=== PATIENT | male | born 1960 | race Caucasian/White ===

== ENCOUNTER 2016-10-24 09:22 | Emergency (ER) | payer BC ==
[2016-10-24 09:53] VITALS: BP 141/77
[2016-10-24] MEDS ORDERED: MECLIZINE HCL 25 MG TABLET PO ONE (10:18)
--- NOTE | 2016-10-24 10:28 | ERNOTE ---
Dizziness ER Record Date of Service: 10/24/16 Presenting Symptoms: dizziness Time Seen by Provider: 10/24/16 10:01 Source: patient, family, RN notes reviewed Exam Limitations: no limitations Immunizations: IMMUNIZATION HX Immunizations Up to Date Yes History of Influenza Vaccine Yes Hx Pneumococcal Vaccination No Allergies/Adverse Reactions: Allergies Allergy/AdvReac Type Severity Reaction Status Date / Time No Known Allergies Allergy Verified 11/16/15 19:04 Home Medications: HOME MEDICATIONS Allopurinol 300 mg PO DAILY 09/02/13 [Last Taken 09/01/13 08:00] Enalapril Maleate [Vasotec] 20 mg PO DAILY 09/02/13 [Last Taken 09/01/13 08:00] Garlic 1,000 mg PO DAILY 09/02/13 [Last Taken Unknown] [place]-3 Fatty Acids/Fish Oil [Fish Oil 1,000 mg Capsule] 2 each PO DAILY [Last Taken Unknown] Omeprazole [Prilosec] 20 mg PO DAILY 09/02/13 [Last Taken 09/01/13 08:00] Simvastatin [Zocor] 40 mg PO HS 09/02/13 [Last Taken 09/01/13 20:00] Ezetimibe [Zetia] 10 mg PO DAILY 04/29/14 [Last Taken Unknown] metFORMIN HCL [Glucophage] 1,000 mg PO BIDWM #120 tablet 10/16/14 [Last Taken Unknown] L.acidoph & Paracasei,B.lactis [Probiotic] 1 each PO DAILY 11/13/15 [Last Taken Unknown] Multivitamins [Multivitamin Sadie] 1 cap PO DAILY 11/13/15 [Last Taken Unknown] Tadalafil [Cialis] 20 mg PO DAILY 11/13/15 [Last Taken Unknown] Acetaminophen [Tylenol] 650 mg PO QID PRN #0 tablet 11/18/15 [Last Taken Unknown ] Ammonium Lactate [Lac-Hydrin] 1 appl TP BID #1 btl 11/18/15 [Last Taken Unknown] Chromium Picolinate 2,000 mcg PO DAILY #1 tablet 11/18/15 [Last Taken Unknown] Cinnamon Bark [Cinnamon] 1,000 mg PO DAILY #1 capsule 11/18/15 [Last Taken Unknown] Silver Sulfadiazine [Silvadene] 1 appl TP BID #1 jar 11/18/15 [Last Taken Unknown] Fluticasone Propionate [Flonase] 2 spray NS DAILY #1 inhaler 10/24/16 [Last Taken Unknown] Meclizine HCl [Antivert] 25 mg PO TID PRN #20 tab 10/24/16 [Last Taken Unknown] - History of Present Illness Narrative: 56 y/o male to ED with by private vehicle for dizziness that began 3 days ago. He has also been having associated nausea, and did vomit once this morning. He is taking [place] for a knee injury, but started this the day after the dizziness began. Date (Duration): 10/14/16 Timing and Duration: sudden onset, intermittent Noted on awakening:: No Associated Symptoms: Present: ringing/roaring in ear, nausea, vomiting, light headedness. Absent: hearing loss, ear pain, headache, weakness, numbness, sweating, sense of confusion Sense of movement: Present: spinning Decreased ability to stand/walk:: Present: walks w/o assistance Usually:: Present: walks w/o assistance Modifying Factors - (Improves): Reports: other - remaining still Modifying Factors - (Worsens): Reports: movement of head Prior Treament: Denies: similar symptoms before Review of Systems - Review of Systems Constitutional: Absent: recent illness, fever, chills EYE: Absent: blurred vision, vision changes ENT: Present: nose congestion. Absent: ear pain, ear discharge, nasal drainage , sore throat Respiratory: Absent: shortness of breath, cough Cardiology: Absent: chest pain, palpitations, syncope Gastrointestinal/Abdominal: Present: See HPI Genitourinary: Present: no symptoms reported Musculoskeletal: Present: joint pain - knee. Absent: neck pain Skin: Absent: rash, lesions Neurological: Present: dizziness/light-headedness. Absent: headache, weakness, numbness, tingling Endocrine: Absent: other - elevated blood sugars Hematologic/Lymphatic: Present: no symptoms reported Psych: Absent: anxiety, depressed - Patient's Past Medical History Patient History - Medical: Diabetes Type 2, GERD, Obesity Patient History - Cardiac/Respiratory: Hypertension, Hyperlipidemia Patient History - Cancer: No Hx of Cancer Patient History - Surgical Procedures: Cholecystectomy, Other Patient History - Other: None - Family History Mother Family History - Medical: Father Family History - Medical: - Social History Living Situations: spouse Abuse History: No History of abuse Psych History: No pertinent hx Smoking Status: Former smoker Have you smoked in the past 12 months: Yes Do you dip or chew tobacco: No Alcohol Use: rarely Drug Use: none - Immunizations Immunizations Up to Date: Yes Hx Pneumococcal Vaccination: No History of Influenza Vaccine: Yes Physical Exam - Physical Exam General Appearance: Present: wd/wn, alert, no apparent distress Eye Exam: Normal inspection: bilateral, PERRL: bilateral, EOMI: right, Abnormal EOM: left - slight nystagmus with gaze to far left Ears, Nose, Throat: Present: hearing grossly normal, abnormal TM (L) - injection present, no middle ear fluid, nasal congestion - left side, normal pharynx. Absent: abnormal TM (R), sinus pain/drainage Neck: Present: normal inspection, nontender, supple, full range of motion Respiratory: Present: no respiratory distress, normal breath sounds, no accessory muscle use, lungs clear Cardiovascular/Chest: Present: regular rate, rhythm, no murmur, normal peripheral pulses Neurological Exam: Present: alert, oriented, normal mood/affect, no motor/ sensory deficits Skin Exam: Present: normal color, warm/dry ED Progress - Vital Signs Patient's Vital Signs:: I have reviewed the patient's vital signs. Vital Signs: Vital Signs 10/24/16 09:46 Temperature 36.6 C Pulse Rate 69 Respiratory 14 Rate Blood Pressure 141/77 O2 Sat by Pulse 96 Oximetry - Progress/Reassessment Chief Complaint: Dizziness Progress:: Unchanged Departure Clinical Impression: Dizziness Eustachian tube dysfunction Qualifiers: Laterality: left Qualified Code(s): H69.82 - Other specified disorders of Eustachian tube, left ear - Departure Disposition: Home Follow Up Needed Condition: Stable Instructions: Dizziness, [id number] Additional Instructions: Continue your routine medications Take Meclizine as needed and Flonase once a day Follow up if no improvement by mid-week Referrals: Nagi Feng MD [Primary Care Provider] - Prescriptions: Fluticasone Propionate [Flonase] 2 spray NS DAILY #1 inhaler Meclizine HCl [Antivert] 25 mg PO TID PRN #20 tab PRN Reason: dizziness
[2016-10-24] MEDS ORDERED: MECLIZINE HCL 25 MG TABLET ONE (10:29)
== END 2016-10-24 10:35 | disposition home or self-care (01) ==
LOC: ER 09:22
DX: R42 Dizziness and giddiness (principal); H69.82 Other specified disorders of Eustachian tube, left ear; Z87.891 Personal history of nicotine dependence; K21.9 Gastro-esophageal reflux disease without esophagitis; E11.9 Type 2 diabetes mellitus without complications

== ENCOUNTER 2017-03-13 10:35 | Observation (INO) | payer BC ==
[2017-03-13] MEDS ORDERED: NORMAL SALINE 1,000 ML IV PRN ×2 (11:35→13:03)
[2017-03-13 11:53] LABS: Hematocrit 39.6 % (42.0-52.0); Hemoglobin 13.8 gm/dL (13.5-18.0); Mean Cell Volume 88.8 fl (78-100); Mean Corpuscular Hemoglobin 30.9 pg (27-31); Mean Corpuscular Hgb Conc 34.8 g/dl (32-36); Neutrophil % 70.2 % (42-75.0); Platelet Count 170 K/mm3 (150-450); Red Blood Count 4.46 M/mm3 (4.7-6.0); Red Cell Distribution Width 13.3 % (11.5-14.0); White Blood Count 8.6 K/mm3 (4.0-10.5)
[2017-03-13 12:11] LABS: Albumin * 3.6 gm/dl (3.4-5.0); Anion Gap 12.9 mmol/L (6.8-13.8); BUN/Creatinine Ratio 17.1 (9.0-21.6); Bilirubin, Total 0.5 mg/dL (0.0-1.1); CRP 4.1 mg/dL (0.0-0.9); Ca. Corrected For Albumin 8.9 mg/dL (8.4-10.2); Calcium * 8.9 mg/dL (7.9-10.9); Carbon Dioxide 26.7 mmol/L (24-32.6); Potassium 4.6 mmol/L (3.4-4.6); Total Protein 7.2 gm/dL (6.2-8.2)
[2017-03-13 12:21] LABS: Hemoglobin A1C 6.7 % (4.00-6.0)
[2017-03-13] MEDS: metroNIDAZOLE/SODIUM CHLORIDE 500 MG/100 ML BAG IV SCH ×2 (13:47→21:41)
--- NOTE | 2017-03-13 14:10 | ERNOTE ---
Lower Extremity HPI - Narrative Date of Service: 03/13/17 - General Lower Extremities Pain: 1st toe: left, 2nd toe: left Time Seen by Provider: 03/13/17 11:08 Source: patient Exam Limitations: no limitations - Immun/Allergies/Home Medications Immunizations: IMMUNIZATION HX Immunizations Up to Date Yes History of Influenza Vaccine No Hx Pneumococcal Vaccination No Allergies/Adverse Reactions: Allergies Allergy/AdvReac Type Severity Reaction Status Date / Time No Known Allergies Allergy Verified 03/13/17 11:05 Home Medications: HOME MEDICATIONS Allopurinol 300 mg PO DAILY 09/02/13 [Last Taken 09/01/13 08:00] Enalapril Maleate [Vasotec] 20 mg PO DAILY 09/02/13 [Last Taken 09/01/13 08:00] Garlic 1,000 mg PO DAILY 09/02/13 [Last Taken Unknown] [place]-3 Fatty Acids/Fish Oil [Fish Oil 1,000 mg Capsule] 2 each PO DAILY [Last Taken Unknown] Omeprazole [Prilosec] 20 mg PO DAILY 09/02/13 [Last Taken 09/01/13 08:00] Simvastatin [Zocor] 40 mg PO HS 09/02/13 [Last Taken 09/01/13 20:00] Ezetimibe [Zetia] 10 mg PO DAILY 04/29/14 [Last Taken Unknown] metFORMIN HCL [Glucophage] 1,000 mg PO BIDWM #120 tablet 10/16/14 [Last Taken Unknown] L.acidoph,Paracasei, B.lactis [Probiotic] 1 each PO DAILY 11/13/15 [Last Taken Unknown] Multivitamins [Multivitamin Sadie] 1 cap PO DAILY 11/13/15 [Last Taken Unknown] Tadalafil [Cialis] 20 mg PO DAILY 11/13/15 [Last Taken Unknown] Acetaminophen [Tylenol] 650 mg PO QID PRN #0 tablet 11/18/15 [Last Taken Unknown ] Ammonium Lactate [Lac-Hydrin] 1 appl TP BID #1 btl 11/18/15 [Last Taken Unknown] Cinnamon Bark [Cinnamon] 1,000 mg PO DAILY #1 capsule 11/18/15 [Last Taken Unknown] Silver Sulfadiazine [Silvadene] 1 appl TP BID #1 jar 11/18/15 [Last Taken Unknown] Naproxen [Naprosyn] 500 mg PO BID PRN 03/13/17 [Last Taken Unknown] - Pain Score Pain Score #1 Pain Score: 0 - History of Present Illness Narrative: Patient is a 57 year old male who presents to ED with complaints of swelling in BLE and redness, possibly cellulitis, left great toe and left second digit and ulcerations on plantar surface of bilateral great toes. [place] and noticed the two sores on bottom of both his great toes Tuesday night. States today noticed redness and swelling left first and second toes. States he is a NIDDM and takes Metformin on regular basis. Does not routinely check his sugars and last time he did they were "high--160-180". States has very little sensation and does not feel pain to bilateral feet, this is chronic for him. Denies fever, chills, body aches, NVD or changes in mentation. Admits that he has had cellulitis in the past and that he routinely fails outpatient treatment. Date (Duration): 03/08/17 Occurred: other - began on Tuesday with ulcers, redness beginning this morning [place] Method of Injury: Reports: other - no injury Reason for Fall: Reports: other - no fall Loss of Consciousness: Reports: no loss of consciousness Modifying Factors - (Improves): Reports: other - nothing Modifying Factors - (Worsens): Reports: other - nothing Associated Symptoms: Reports: sensory loss - chronic. Denies: unable to bear weight, snapping, popping sensation, dizzy/light headedness, headache, weakness , chest pain, vomiting/diarrhea, bowel/bladder problems Other Injuries: Reports: none Subsequent Symptoms: Denies: numbness, motor loss Review of Systems - Review of Systems Constitutional: Present: no symptoms reported. Absent: recent illness, fever, chills, diaphoresis, weakness, fatigue, malaise, weight loss, fussy EYE: Present: no symptoms reported. Absent: eye pain, eye discharge, blurred vision, double vision ENT: Present: no symptoms reported. Absent: ear pain, ear discharge, pulling on ears, nose pain, nose congestion, nasal drainage Respiratory: Present: no symptoms reported. Absent: shortness of breath, cough , orthopnea, wheezing, stridor Cardiology: Present: edema - BLE . Absent: chest pain, palpitations, syncope, claudication Gastrointestinal/Abdominal: Present: no symptoms reported. Absent: nausea, vomiting, diarrhea, constipation, abdominal pain, eating less, drinking less Genitourinary: Present: no symptoms reported Musculoskeletal: Present: no symptoms reported Skin: Present: no symptoms reported Neurological: Present: no symptoms reported Endocrine: Present: no symptoms reported Hematologic/Lymphatic: Present: no symptoms reported Psych: Present: no symptoms reported - Patient's Past Medical History Patient History - Medical: Diabetes Type 2, GERD, Obesity Patient History - Cardiac/Respiratory: Hypertension, Hyperlipidemia Patient History - Cancer: No Hx of Cancer Patient History - Surgical Procedures: Cholecystectomy Patient History - Other: None - Family History Mother Family History - Medical: Father Family History - Medical: - Social History Living Situations: home Abuse History: No History of abuse Psych History: No pertinent hx Do you dip or chew tobacco: No - stopped 04/2016 Alcohol Use: rarely Drug Use: none - Immunizations Immunizations Up to Date: Yes Hx Pneumococcal Vaccination: No History of Influenza Vaccine: No Physical Exam - Physical Exam General Appearance: Present: wd/wn, alert, no apparent distress Head Exam: Present: normal inspection, no evidence of injury Eye Exam: Normal inspection: bilateral, PERRL: bilateral Ears, Nose, Throat: Present: normal ENT inspection, normal pharynx. Absent: pharyngeal erythema, dry mucous membranes Neck: Present: normal inspection, nontender, supple, full range of motion. Absent: lymphadenopathy (R), lymphadenopathy (L) Respiratory: Present: no respiratory distress, normal breath sounds, no accessory muscle use, chest nontender, lungs clear. Absent: respiratory distress, accessory muscle use, decreased breath sounds, crackles, rales, stridor, wheezing Cardiovascular/Chest: Present: regular rate, rhythm, no murmur, normal peripheral pulses Peripheral Pulses: N=norm/S=strong/W=weak/B=bound/A=absent: Carotid (R): Normal , Carotid (L): Normal, Radial (R): Normal, Radial (L): Normal, Dorsalis-pedis (R ): Normal, Dorsalis-pedis (L): Normal Gastrointestinal/Abdominal: Present: normal bowel sounds, nontender, nondistended, soft, no organomegaly Rectal Exam: Present: deferred Male Genitals Exam: Present: deferred Back Exam: Present: normal inspection, normal range of motion, no CVA tenderness , no vertebral tenderness Extremity Exam: Present: normal range of motion, other - mild BLE edema, ulceration noted to plantar area of right great toe, pink center with well healing margins measuring 0.5 x 1 cm. Larger well healing ulcer noted to plantar area of right great toe measuring 1x1 cm with pink center and well healing margins. No purulent drainage noted. Erythema, tenderness to left great toe, left second digit and space in between toes Neurological Exam: Present: alert, oriented, normal mood/affect, no motor/ sensory deficits Skin Exam: Present: normal color, warm/dry Lymphatic Exam: Present: no adenopathy ED Progress - Results and Orders Patient's Lab Results:: I have reviewed the patient's lab results. - Vital Signs Patient's Vital Signs:: I have reviewed the patient's vital signs. Vital Signs: Vital Signs 03/13/17 03/13/17 03/13/17 10:44 11:58 13:14 Temperature 36.8 C 36.5 C 36.7 C Pulse Rate 74 74 74 Respiratory 17 17 17 Rate Blood Pressure 154/76 140/64 126/74 O2 Sat by Pulse 98 96 97 Oximetry - X-Ray X-Ray #1 X-Ray: foot - right X-ray Comments: Right foot no acute findings, no fractures X-Ray #2 X-Ray: foot - left X-ray Comments: left foot no acute findings, no fractures - Progress/Reassessment Chief Complaint: Foot Injury/Pain Progress:: Improved Progress Note-Subjective: 03/13/17 14:08 Patient updated throughout day regarding conversations with Dr BRADSHAW and lab/xray findings. [address] Bradshaw and direction given regarding additional lab work. 1300 Dr BRADSHAW called with lab findings and admission acceptance and antibiotic choices were verbalized. Patient and verbalized understanding regarding admission and treatment plan Departure Clinical Impression: Cellulitis Qualifiers: Site of cellulitis: extremity Site of cellulitis of extremity: toe Laterality: left Qualified Code(s): L03.032 - Cellulitis of left toe - Departure Disposition: [facility] Condition: Good Referrals: Nagi Feng MD [Primary Care Provider] -
[2017-03-13] MEDS ORDERED: DIPHTH,PERTUSS(ACELL),TET VAC 0.5 ML VIAL IM ONE ×2 (16:50→21:44)
[2017-03-13] MEDS ORDERED: TADALAFIL 20 MG TABLET PO PRN (16:50)
--- NOTE | 2017-03-13 16:50 | HP ---
Chief Complaint - Chief Complaint Date of Service: 03/13/17 Time of Service: 16:38 Chief Complaint: Cellulits of both feet History of Present Illness: This patient is a 57 year old male who presented to the [facility] ED with complaints of swelling and redness of his left great and second toe and forefoot, with ulcerations on the plantar surfaces of both of these toes. He also has ulcerations on the plantar surface of his right great toe with redness isolated to the right great toe itself only. He [place], walking around barefoot on the pavement and noticed the two sores on the bottom of both his great toes Tuesday night. Today he noticed the redness and swelling for the first time. He is a NIDDM and takes Metformin on regular basis. He does not routinely check his sugars and the last time he did they were "high--160-180". He has very little sensation in his feet and does not feel pain and this is chronic for him. He denies fever, chills, body aches, NVD or changes in mentation. He admits to very severe leg and foot cellulitis in the past and that he routinely fails outpatient treatment for this problem. He still has scars on both legs from his feet to his knees, documenting his last such episode. - Patient's Past Medical History Patient History - Medical: Diabetes Type 2, GERD, Obesity Patient History - Cardiac/Respiratory: Hypertension, Hyperlipidemia Patient History - Cancer: No Hx of Cancer Patient History - Surgical Procedures: Cholecystectomy Patient History - Other: None - Family History Mother Family History - Medical: Father Family History - Medical: - Social History Living Situations: home Abuse History: No History of abuse Psych History: No pertinent hx Smoking Status: Former smoker Have you smoked in the past 12 months: No Do you dip or chew tobacco: No - Quit last april Alcohol Use: rarely Drug Use: none - Immunizations Immunizations Up to Date: Yes Hx Pneumococcal Vaccination: No History of Influenza Vaccine: No Review Of Systems (GEN) - Review of Systems Generalized/Overall Review: Present: No Symptoms Reported EENTM: Present: No Symptoms Reported Respiratory: Present: No Symptoms Reported Cardiac: Present: No Symptoms Reported Abdominal: Present: No Symptoms Reported Genitourinary: Present: No Symptoms Reported Musculoskeletal: Present: No Symptoms Reported Neurological: Present: No Symptoms Reported, Other - see HPI Skin: Present: No Symptoms Reported Endocrine: Present: No Symptoms Reported Misc: All systems neg except as marked Immunizations: IMMUNIZATION HX Immunizations Up to Date Yes History of Influenza Vaccine No Hx Pneumococcal Vaccination No Allergies/Adverse Reactions: Allergies Allergy/AdvReac Type Severity Reaction Status Date / Time No Known Allergies Allergy Verified 03/13/17 16:07 Home Medications: HOME MEDICATIONS Allopurinol 300 mg PO DAILY 09/02/13 [Last Taken 09/01/13 08:00] Enalapril Maleate [Vasotec] 20 mg PO DAILY 09/02/13 [Last Taken 09/01/13 08:00] Garlic 1,000 mg PO DAILY 09/02/13 [Last Taken Unknown] [place]-3 Fatty Acids/Fish Oil [Fish Oil 1,000 mg Capsule] 1 each PO DAILY [Last Taken Unknown] Omeprazole [Prilosec] 20 mg PO DAILY 09/02/13 [Last Taken 09/01/13 08:00] Simvastatin [Zocor] 40 mg PO HS 09/02/13 [Last Taken 09/01/13 20:00] Ezetimibe [Zetia] 10 mg PO DAILY 04/29/14 [Last Taken Unknown] metFORMIN HCL [Glucophage] 1,000 mg PO BIDWM #120 tablet 10/16/14 [Last Taken Unknown] L.acidoph,Paracasei, B.lactis [Probiotic] 1 each PO DAILY 11/13/15 [Last Taken Unknown] Multivitamins [Multivitamin Sadie] 1 cap PO DAILY 11/13/15 [Last Taken Unknown] Tadalafil [Cialis] 20 mg PO PRN PRN 11/13/15 [Last Taken Unknown] Ammonium Lactate [Lac-Hydrin] 1 appl TP BID #1 btl 11/18/15 [Last Taken Unknown] Cinnamon Bark [Cinnamon] 1,000 mg PO DAILY #1 capsule 11/18/15 [Last Taken Unknown] Silver Sulfadiazine [Silvadene] 1 appl TP BID PRN 03/13/17 [Last Taken Unknown] Exam - Exam Vital Signs: Vital Signs - Last Taken Temp 36.6 C 03/13/17 15:43 Pulse 75 03/13/17 15:43 Resp 18 03/13/17 15:43 BP 135/64 03/13/17 15:43 Pulse Ox 95 03/13/17 15:43 Constitutional: Present: Alert, Oriented x3, Cooperative, Well developed, No distress, Morbidly obese ENT Exam: Present: normal ENT inspection, hearing grossly normal Eye Exam: bilateral eye: normal inspection, PERRL Neck: Present: normal inspection Back Exam: Present: normal inspection Respiratory: Present: lungs clear, normal breath sounds Cardiovascular/Chest: Present: regular rate, rhythm, no murmur Abdomen: Present: Normal bowel sounds, soft, nontender, nondistended, no rebound tenderness, no hepatospenomegaly, obese Extremity: Present: no pedal edema, other - ulcer plantar surface right great toe. right great toe red. ulcers plantar surfaces left great and second toe. left great and second toes red. distal third of left foot swollen and red. both legs and feet from knees to toes discolored from last episode of infection Skin Exam: Present: warm/dry, no cyanosis Neurologic: Present: alert, oriented x 3 Appearance: Present: appropriate appearance, appropriate insight, neat Eye contact: Present: cooperative, good eye contact, normal speech Thoughts: Present: normal thought pattern Diagnostic Studies: Laboratory Results WBC 8.6 K/mm3 (4.0-10.5) 03/13/17 11:45 RBC 4.46 M/mm3 (4.7-6.0) L 03/13/17 11:45 Hgb 13.8 gm/dL (13.5-18.0) 03/13/17 11:45 Hct 39.6 % (42.0-52.0) L 03/13/17 11:45 MCV 88.8 fl (78-100) 03/13/17 11:45 MCH 30.9 pg (27-31) 03/13/17 11:45 MCHC 34.8 g/dl (32-36) 03/13/17 11:45 RDW 13.3 % (11.5-14.0) 03/13/17 11:45 Plt Count 170 K/mm3 (150-450) 03/13/17 11:45 MPV 10.0 fl (6.0-9.5) H 03/13/17 11:45 Immature Gran % (Auto) 0.50 % (0.001-0.429) H 03/13/17 11:45 Immature Gran # (Auto) 0.04 K/mm3 (0.000-0.0310) H 03/13/17 11:45 Neutrophils % 70.2 % (42-75.0) 03/13/17 11:45 Lymphocytes % 19.5 % (20-51) L 03/13/17 11:45 Monocytes % 7.6 % (0.0-9) 03/13/17 11:45 Eosinophils % 1.8 % (0.0-3.0) 03/13/17 11:45 Basophils % 0.4 % (0.0-1.0) 03/13/17 11:45 Nucleated RBC % 0.0 k/mm3 (0-1) 03/13/17 11:45 Neutrophils # 6.0 K/mm3 (1.3-6.0) 03/13/17 11:45 Lymphocytes # 1.7 k/mm3 (1.5-3.5) 03/13/17 11:45 Monocytes # 0.7 k/mm3 (0.0-1.0) 03/13/17 11:45 Eosinophils # 0.2 k/mm3 (0.0-0.7) 03/13/17 11:45 Absolute Basophils 0.0 k/mm3 (0.0-0.1) 03/13/17 11:45 ESR 32 mm/hr (0-10) H 03/13/17 11:45 Sodium 138 mmol/L (132-142) 03/13/17 11:45 Plasma Sodium 139 mmol/L (130-142) 03/13/17 11:45 Potassium 4.6 mmol/L (3.4-4.6) 03/13/17 11:45 Chloride 103 mmol/L (97-106) 03/13/17 11:45 Carbon Dioxide 26.7 mmol/L (24-32.6) 03/13/17 11:45 Anion Gap 12.9 mmol/L (6.8-13.8) 03/13/17 11:45 BUN 18 mg/dL (6-23) 03/13/17 11:45 Creatinine 1.05 mg/dL (0.4-1.4) 03/13/17 11:45 Est GFR (Non-Af Amer) 78 mL/min (60-130) 03/13/17 11:45 BUN/Creatinine Ratio 17.1 (9.0-21.6) 03/13/17 11:45 Random Glucose 175 mg/dL (70-110) H 03/13/17 11:45 Mean Blood Glucose 137 mg/dL 03/13/17 11:45 Hemoglobin A1c 6.7 % (4.00-6.0) H 03/13/17 11:45 Calcium 8.9 mg/dL (7.9-10.9) 03/13/17 11:45 Calcium Adj for Albumin 8.9 mg/dL (8.4-10.2) 03/13/17 11:45 Total Bilirubin 0.5 mg/dL (0.0-1.1) 03/13/17 11:45 AST 19 U/L (0-48) 03/13/17 11:45 ALT 29 U/L (19-67) 03/13/17 11:45 Alkaline Phosphatase 74 U/L (50-170) 03/13/17 11:45 C-Reactive Prot, Quant 4.1 mg/dL (0.0-0.9) H 03/13/17 11:45 Total Protein 7.2 gm/dL (6.2-8.2) 03/13/17 11:45 Albumin 3.6 gm/dl (3.4-5.0) 03/13/17 11:45 Assessment/Plan - Narrative Narrative: May need extended stay. I am not sure yet. Pictures of feet. IV antibiotics. Tetanus shot. Follow labs. - Assessment/Plan (1) Foot ulcer Problem: Acute (2) Cellulitis Problem: Acute Qualifiers: Site of cellulitis: extremity Site of cellulitis of extremity: toe Laterality: left Qualified Code(s): L03.032 - Cellulitis of left toe (3) Bilateral lower extremity edema Problem: Chronic (4) Diabetes mellitus Problem: Chronic
[2017-03-13] MEDS ORDERED: metFORMIN HCL 500 MG TABLET ONE (17:38)
[2017-03-13] MEDS ORDERED: ALLOPURINOL 100 MG TABLET ONE (20:40)
[2017-03-13] MEDS ORDERED: DICLOFENAC SODIUM 50 MG TABLET.DR PO ONE (20:41)
[2017-03-13] MEDS ORDERED: SIMVASTATIN 20 MG TABLET PO SCH (21:00)
[2017-03-13] MEDS: ALLOPURINOL 300 MG TABLET PO SCH (21:10)
[2017-03-13] MEDS: DICLOFENAC SODIUM 75 MG TABLET.DR PO SCH (21:10)
[2017-03-13] MEDS: CHOLESTYRAMINE/ASPARTAME 4 GM PACKET PO SCH (21:12)
[2017-03-13] MEDS: ENALAPRIL MALEATE 20 MG TABLET PO SCH (21:12)
[2017-03-13] MEDS: EZETIMIBE 10 MG TABLET PO SCH (21:12)
[2017-03-13] MEDS: PSYLLIUM SEED 1 PACKET PACKET PO SCH (21:21)
[2017-03-13] MEDS ORDERED: metroNIDAZOLE/SODIUM CHLORIDE 500 MG/100 ML BAG IV SCH (21:45)
[2017-03-14] MEDS: metroNIDAZOLE/SODIUM CHLORIDE 500 MG/100 ML BAG IV SCH (04:16)
[2017-03-14 05:26] LABS: Hematocrit 36.2 % (42.0-52.0); Hemoglobin 12.4 gm/dL (13.5-18.0); Mean Cell Volume 88.9 fl (78-100); Mean Corpuscular Hemoglobin 30.5 pg (27-31); Mean Corpuscular Hgb Conc 34.3 g/dl (32-36); Mean Platelet Volume 10.7 fl (6.0-9.5); Neutrophil # 5.2 K/mm3 (1.3-6.0); Neutrophil % 61.5 % (42-75.0); Platelet Count 166 K/mm3 (150-450); Red Blood Count 4.07 M/mm3 (4.7-6.0); Red Cell Distribution Width 13.3 % (11.5-14.0); White Blood Count 8.4 K/mm3 (4.0-10.5)
[2017-03-14 05:35] LABS: Anion Gap 12.7 mmol/L (6.8-13.8); BUN/Creatinine Ratio 17.4 (9.0-21.6); CRP 4.3 mg/dL (0.0-0.9); Calcium * 8.4 mg/dL (7.9-10.9); Carbon Dioxide 25.6 mmol/L (24-32.6); Estimated Creat Clear 90.4; Potassium 4.3 mmol/L (3.4-4.6)
[2017-03-14] MEDS ORDERED: PANTOPRAZOLE SODIUM 20 MG TABLET.DR PO SCH (07:00)
[2017-03-14 07:03] VITALS: BP 121/71
[2017-03-14] MEDS: DICLOFENAC SODIUM 75 MG TABLET.DR PO SCH (08:32)
[2017-03-14] MEDS: ALLOPURINOL 300 MG TABLET PO SCH (08:32)
[2017-03-14] MEDS: EZETIMIBE 10 MG TABLET PO SCH (08:32)
[2017-03-14] MEDS: CHOLESTYRAMINE/ASPARTAME 4 GM PACKET PO SCH (08:33)
[2017-03-14] MEDS: ENALAPRIL MALEATE 20 MG TABLET PO SCH (08:33)
[2017-03-14] MEDS: PSYLLIUM SEED 1 PACKET PACKET PO SCH (08:33)
[2017-03-14] MEDS ORDERED: ENALAPRIL MALEATE 20 MG TABLET PO SCH (09:00)
[2017-03-14] MEDS ORDERED: OMEGA-3 FATTY ACIDS 1 CAP CAPSULE PO SCH (09:00)
[2017-03-14] MEDS ORDERED: MULTIVITAMINS 1 CAP CAPSULE PO SCH (09:00)
[2017-03-14] MEDS ORDERED: Cinnamon Bark [Cinnamon] 1,000 MG PO SCH (09:00)
[2017-03-14] MEDS ORDERED: Garlic 1,000 MG PO SCH (09:00)
[2017-03-14] MEDS ORDERED: EZETIMIBE 10 MG TABLET PO SCH (09:00)
[2017-03-14] MEDS ORDERED: ALLOPURINOL 300 MG TABLET PO SCH (09:00)
[2017-03-14] MEDS ORDERED: LACTOBACILLUS ACIDOPHILUS 100 CAP BTL PO SCH (09:00)
--- NOTE | 2017-03-14 09:22 | DS ---
(1) Foot ulcer Problem: Acute (2) Cellulitis Problem: Acute Qualifiers: Site of cellulitis: extremity Site of cellulitis of extremity: toe Laterality: left Qualified Code(s): L03.032 - Cellulitis of left toe (3) Bilateral lower extremity edema Problem: Chronic (4) Diabetes mellitus Problem: Chronic Procedures Performed: none Discharge Disposition: Home self care Disposition: Home self-care Condition: Good Discharge Activity: Activity as tolerated - off work till tuesday. Discharge Diet: Consistent carbs Referrals: Nagi Feng MD [Primary Care Provider] - Problem Oriented Discharge Instructions to Patient/Family: Cellulitis, Adult, [id number] Additional Patient Instructions (free text): Rest. No work till tuesday. Bandaids bid toes. See Dr. Corbin Tuesday. Prescriptions (Any new or edited meds): Cefuroxime Axetil [Cefuroxime] 500 mg PO BID #30 tablet metroNIDAZOLE [Flagyl] 500 mg PO QID #60 tab Complete Home Medications List: Complete Home Medication List: Allopurinol 300 mg PO DAILY 09/02/13 Enalapril Maleate [Vasotec] 20 mg PO DAILY 09/02/13 Garlic 1,000 mg PO DAILY 09/02/13 Maple-3 Fatty Acids/Fish Oil [Fish Oil 1,000 mg Capsule] 1 each PO DAILY Omeprazole [Prilosec] 20 mg PO DAILY 09/02/13 Simvastatin [Zocor] 40 mg PO HS 09/02/13 Ezetimibe [Zetia] 10 mg PO DAILY 04/29/14 metFORMIN HCL [Glucophage] 1,000 mg PO BIDWM #120 tablet 10/16/14 L.acidoph,Paracasei, B.lactis [Probiotic] 1 each PO DAILY 11/13/15 Multivitamins [Multivitamin Sadie] 1 cap PO DAILY 11/13/15 Tadalafil [Cialis] 20 mg PO PRN PRN 11/13/15 Cinnamon Bark [Cinnamon] 1,000 mg PO DAILY #1 capsule 11/18/15 Cholestyramine/Aspartame [Questran Light Packet] 4 gm PO BID 03/13/17 Diclofenac Sodium 75 mg PO DAILY 03/13/17 Cefuroxime Axetil [Cefuroxime] 500 mg PO BID #30 tablet 03/14/17 Psyllium Husk (with Sugar) [Metamucil] 1 each PO DAILY packet 03/14/17 metroNIDAZOLE [Flagyl] 500 mg PO QID #60 tab 03/14/17
[2017-03-14] MEDS ORDERED: SIMVASTATIN 40 MG TABLET PO SCH (21:00)
== END 2017-03-14 09:35 | disposition home or self-care (01) ==
LOC: ER 10:35 → MS 14:02
PROVIDERS: ADMIT Allergy & Immunology; ATTEND Allergy & Immunology
DX: L03.032 Cellulitis of left toe (principal); E11.621 Type 2 diabetes mellitus with foot ulcer; L97.519 Non-pressure chronic ulcer of other part of right foot with unspecified severity; Z79.84 Long term (current) use of oral hypoglycemic drugs; R60.0 Localized edema; I10 Essential (primary) hypertension; K21.9 Gastro-esophageal reflux disease without esophagitis; E78.5 Hyperlipidemia, unspecified; Z87.891 Personal history of nicotine dependence; E66.9 Obesity, unspecified; Z68.42 Body mass index [BMI] 45.0-49.9, adult; L97.529 Non-pressure chronic ulcer of other part of left foot with unspecified severity
CPT/HCPCS: 36415; 73630; 80048; 80053; 83036; 85025; 85652; 86140; 90471; 96365; 96366; 96367; 99285; G0378

== ENCOUNTER 2017-05-24 07:56 | Day surgery (SDC) | payer BC ==
[~2017-05-24 07:56] MED LIST: RINGER'S SOLUTION,LACTATED 1,000 ML IV PRN; ceFAZolin SODIUM 1 GM VIAL IV PRN
[2017-05-24] MEDS ORDERED: RINGER'S SOLUTION,LACTATED 1,000 ML IV ONE (08:31)
[2017-05-24] MEDS ORDERED: BUPIVACAINE HCL/EPINEPHRINE 50 ML VIAL IJ ONE ×2 (09:15)
[2017-05-24] MEDS: ROPIVACAINE HCL/PF 40 MG in NORMAL SALINE 16 ML IJ PRN ×2 (09:27→09:40)
--- NOTE | 2017-05-24 10:01 | OR ---
Operative Report - Dictated Report Narrative: Date: 05/24/2017 Physician: Rupert Bills M.D. Senior Internet Sales Consultant: Dar Gómez PA-C Preoperative diagnosis: Right Knee lateral meniscus tear Postoperative diagnosis: Right Knee lateral meniscus tear Procedure: Right knee arthroscopy with partial lateral meniscectomy Anesthesia: Gen. Plus local Complications: None Estimated blood loss: Minimal Tourniquet time: 34 minutes at 325 mmHg Specimens: None Retained implants: None Drains: None Indications: Francesco Is a 57 year-old male who has been followed in my clinic with complaints of knee pain consistent with suspected lateral meniscal pathology. Physical exam and diagnostic imaging were consistent with these complaints and concern for lateral meniscal pathology. Conservative measures have failed including, but not limited to, passage of time, activity modification, medications, and injections. The risks, benefits, and alternatives were discussed in clinic. The risks being , bleeding, infection, blood clots, nerve, tendon, ligament , blood vessel injury, persistent pain, arthrosis, need for additional procedures, and persistent symptoms. Consent was obtained in the clinic. Procedure: After marking the correct extremity in the preoperative holding area, a timeout was performed in the operating room. IV antibiotics consisting of 2 grams of Ancef were administered prior to the procedure. A well-padded tourniquet was applied to the operative upper thigh. The leg was prepped and draped in a standard sterile fashion. 0.5% Marcaine with epinephrine was infused into the projected portal sites as well as the intra-articular space. A mart incision was made for inferior lateral portal. A blunt trocar and cannula was introduced into the knee. The suprapatellar pouch revealed scattered small cartilaginous loose bodies. The medial patella facet showed grade 1 and scattered grade 2 chondral change. The lateral patella facet showed grade 2 chondral change. The trochlea showed grade 1 and grade 2 chondral changes. The medial gutter revealed no loose bodies. The medial joint space was then entered utilizing a lateral post and valgus stress. A spinal needle was utilized for guidance into placement of an anterior medial portal. This was placed just superior to the medial meniscus ensuring that we could reach the posterior aspect of the medial and lateral joint spaces. A mart incision was made in the site, and the probe was introduced to the knee. The medial joint space was examined, and the medial femoral condyle showed a small 1 x 1.5 cm area of grade 3 chondral change on the medial aspect of the weightbearing surface just adjacent to the notch. The medial tibial plateau showed grade 2 chondral changes. The medial meniscus was intact with no tears. The notch was then examined, and the ACL was noted to be intact. The PCL was noted to be intact. The lateral joint space was then examined using a varus force in the figure 4 position. Lateral femoral condyle showed grade 1 chondral changes. Lateral tibial plateau showed diffuse grade 2 chondral change with a central area of grade 3 chondral change. The lateral meniscus showed a partial tear at the posterior root attachment involving the anterior half of the root attachment. The meniscus was stressed and did not demonstrate instability or excess laxity. There was degenerative tearing of the white-white zone of the body extending into the posterior horn. The lateral gutter showed no loose bodies. Having identified the surgical pathology, a series of biters and [place] were utilized in order to debride the lateral meniscus and lateral tibial plateau. Once it was felt that we adequately addressed the pathology, the knee was thoroughly irrigated. The fluid was evacuated ensuring that we have removed all meniscal, chondral, and any other loose bodies. A final evaluation of the joint showed no additional pathology. The fluid was then evacuated of the knee, and the trocar and camera were removed from the joint. The wounds were closed with interrupted nylon after placing 20 mL of 0.2% ropivacaine into the joint. Dressings consisting of Xeroform, 4 x 4, ABD, soft roll, and an Benjamin were applied. All sponge, needle, blade, and instrument counts were correct prior to closing the wounds. The patient was awoken and transferred to the post-anesthesia care unit in stable condition.
[2017-05-24] MEDS ORDERED: RINGER'S SOLUTION,LACTATED 1,000 ML IV PRN (10:53)
[2017-05-24] MEDS ORDERED: HYDROcodone/ACETAMINOPHEN 1 EACH TABLET PO PRN (10:54)
[2017-05-24] MEDS ORDERED: HYDROmorphone HCL 2 MG/ML VIAL IV PRN (10:55)
[2017-05-24 12:50] VITALS: BP 112/68
== END 2017-05-24 07:57 | disposition home or self-care (01) ==
LOC: AMB 07:56
PROVIDERS: ATTEND Orthopaedic Surgery
PROC: 0SBC4ZZ Excision of Right Knee Joint, Percutaneous Endoscopic Approach (ICD-10-PCS; principal; 2017-05-24 09:00)
DX: M23.251 Derangement of posterior horn of lateral meniscus due to old tear or injury, right knee (principal); I10 Essential (primary) hypertension; E11.9 Type 2 diabetes mellitus without complications; E78.00 Pure hypercholesterolemia, unspecified; M10.9 Gout, unspecified; F17.200 Nicotine dependence, unspecified, uncomplicated; Z68.41 Body mass index [BMI] 40.0-44.9, adult